=== PATIENT | female | born 1985 | race Caucasian/White ===

== ENCOUNTER 2018-06-20 01:07 | Inpatient (IN) | payer OTHER ==
[~2018-06-20] VITALS: Ht 165.1 cm; Wt 70.3 kg
[2018-06-20] MEDS ORDERED: TRAMADOL HCL50 MG (01:18)
[2018-06-20] MEDS ORDERED: RANITIDINE HCL300 MG (01:19)
[2018-06-21] MEDS ORDERED: ULTRACET PO (13:26)
[2018-06-21] MEDS ORDERED: AMOX1TAB5 PO (13:26)
== END 2018-06-21 14:50 | disposition home or self-care (01) | DRG 419 ==
LOC: ER 01:07 → SURH 06:10 → SEC-K 06:10 → SURH 07:48
PROVIDERS: ADMIT Surgery
PROC: BW40ZZZ Ultrasonography of Abdomen (ICD-10-PCS; 2018-06-20)
PROC: 0FT44ZZ Resection of Gallbladder, Percutaneous Endoscopic Approach (ICD-10-PCS; principal; 2018-06-20 12:00)
DX: K80.10 Calculus of gallbladder with chronic cholecystitis without obstruction (principal); K66.0 Peritoneal adhesions (postprocedural) (postinfection)

== ENCOUNTER 2020-12-23 14:07 | Outpatient (CLI) | payer OTHER ==
[~2020-12-23 14:07] MED LIST: AMOX1TAB5 PO; RANITIDINE HCL300 MG; TRAMADOL HCL50 MG; ULTRACET PO
== END 2020-12-23 15:05 | disposition home or self-care (01) ==
LOC: PRENATAL 14:07
PROVIDERS: ATTEND Obstetrics & Gynecology Maternal & Fetal Medicine
DX: Z36.89 Encounter for other specified antenatal screening (principal); O36.80X1 Pregnancy with inconclusive fetal viability, fetus 1; O09.521 Supervision of elderly multigravida, first trimester; Z3A.12 12 weeks gestation of pregnancy

== ENCOUNTER 2021-02-23 15:36 | Outpatient (CLI) | payer OTHER | END 2021-02-23 17:07 | disposition home or self-care (01) | LOC: PRENATAL 15:36 | PROVIDERS: ATTEND Obstetrics & Gynecology Maternal & Fetal Medicine | DX: O35.0XX1 Maternal care for (suspected) central nervous system malformation in fetus, fetus 1 (principal); O35.3XX1 Maternal care for (suspected) damage to fetus from viral disease in mother, fetus 1; O98.512 Other viral diseases complicating pregnancy, second trimester; O09.512 Supervision of elderly primigravida, second trimester; Z36.89 Encounter for other specified antenatal screening; Z3A.20 20 weeks gestation of pregnancy ==

== ENCOUNTER 2021-05-31 15:17 | Outpatient (CLI) | payer OTHER | END 2021-05-31 16:38 | disposition home or self-care (01) | LOC: PRENATAL 15:17 | PROVIDERS: ATTEND Obstetrics & Gynecology Maternal & Fetal Medicine | DX: O09.519 Supervision of elderly primigravida, unspecified trimester (principal); O35.0XX0 Maternal care for (suspected) central nervous system malformation in fetus, not applicable or unspecified; O26.849 Uterine size-date discrepancy, unspecified trimester ==

== ENCOUNTER 2021-06-30 13:15 | Inpatient (IN) | payer OTHER ==
[~2021-06-30] VITALS: Ht 165.1 cm; Wt 72.1 kg
[2021-07-11] MEDS ORDERED: PRENATAL CAPLE1 EAC1 PO (16:50)
== END 2021-07-15 14:13 | disposition home or self-care (01) | DRG 788 ==
LOC: LDR 07-11 15:18 → OB/GYN 07-12 13:15 → SURG-SUITE 07-13 02:36
PROVIDERS: ADMIT Obstetrics & Gynecology; ATTEND Obstetrics & Gynecology
PROC: 4A1HXCZ Monitoring of Products of Conception, Cardiac Rate, External Approach (ICD-10-PCS; 2021-07-11)
PROC: 3E033VJ Introduction of Other Hormone into Peripheral Vein, Percutaneous Approach (ICD-10-PCS; 2021-07-13)
PROC: 10D00Z1 Extraction of Products of Conception, Low, Open Approach (ICD-10-PCS; principal; 2021-07-13 01:00)
DX: O61.0 Failed medical induction of labor (principal); O33.8 Maternal care for disproportion of other origin; Z3A.39 39 weeks gestation of pregnancy; Z37.0 Single live birth; Z20.822 Contact with and (suspected) exposure to COVID-19